=== PATIENT | male | born 1955 | race Caucasian/White ===

== ENCOUNTER 2020-02-18 19:19 | Observation (INO) | payer BC, SELFPAY ==
[2020-02-18 18:16] VITALS: BMI 26.5
[2020-02-18 18:17] VITALS: BP 152/86; PULSE 85; RESP 16; TEMP 36.7; O2SAT 98
--- NOTE | 2020-02-18 18:25 | HP.PCM_ITS ---
History of Present Illness Date of Admission: 02/18/20 Chief Complaint: right flank pain The patient is a 64 year old M with a past medical history significant for kidney stones. He was admitted directly from outside hospital on 02/18/2020 with a complaint of right flank pain. Symptoms had started 3 days prior to this admission was mainly cramping, right-sided and radiating to the groin. Pain was very severe with assisted nausea and vomiting so he went to [facility] ED in [place]. CAT scan done then showed a 7 mm kidney stone. He was hydrated with IV fluids and given IV pain medication he felt well enough to go home. He felt better but symptoms recurred today and pain was very severe at 10 out of 10. Pain was so debilitating he could even get in his car. He denied any fever, chills, burning with urination or frequency, nausea vomiting or diarrhea. Review of signs otherwise negative. Vitals in [place] was stable and CT of the abdomen done there showed bilateral nonobstructing renal calculi with right-sided hydronephrosis and previously identified 7 mm calculi at the ur eteral pelvic junction now within the distal ureter approximately 10 mm from the ureterovesical junction. CBC and BMP done at [place] were unremarkable. There was a stable 9 mm distal left ureteral calculus which is unchanged in position and no evidence of left-sided hydronephrosis. He has been admitted to be managed for bilateral kidney stones with right-sided hydronephrosis. [] Past Medical History Surgical History: no surgical history Psychiatric History: No pertinent psych hx Lives: Spouse/ Significant Other Smoking Status: Never smoker Alcohol: None Drugs: None - *Family History Maternal History Items: No pertinent history Paternal History Items: No pertinent history Review of Systems Constitutional: Denies: Chills, Fever, Weight Change Eyes: Denies: Blurred vision HEENT: Denies: Head Aches, Sinus Congestion, Sinus Drainage Cardiovascular: Denies: Chest Pain, Palpitations Respiratory: Denies: Cough, Shortness of Breath, Shortness of breath at rest, Shortness of breath upon exertion, Sputum production Gastrointestinal: Denies: Abdominal Pain, Nausea, Vomiting Genitourinary: Denies: Dysuria Musculoskeletal: Reports: - - right flank pain. Denies: Joint Pain, Joint Tenderness Skin: Denies: Rash, Wounds Neurological: Denies: Numbness, Tingling, Focal weakness Psychiatric: Denies: Anxiety, Depression, Homicidal Ideations, Suicidal Ideations Hematologic/ Lymphatic: Denies: Easy Bruising, Easy Bleeding VTE Information - Inpt Only VTE Present on Admission: No VTE Pharm Prophylaxis ordered?: Yes - Physical Exam Vitals/I&O's: Vital Signs Temp Pulse Resp BP Pulse Ox 98.1 F 85 16 152/86 H 98 02/18/20 18:17 02/18/20 18:17 02/18/20 18:17 02/18/20 18:17 02/18/20 18:17 Oxygen Delivery Method Room Air Weight: 185 lb Body Mass Index (BMI) 26.5 General: Alert, Oriented x3, Cooperative, No apparent distress HEENT: Atraumatic, PERRLA, EOMI, Normocephalic Oral: Moist Mucosa Neck: Supple, No JVD, Negative Carotid Bruits Lungs: Clear to auscultation, Normal air movement, No rhonchi, No wheeze, No rales Cardiovascular: Regular rate, Regular Rhythm, Normal S1, Normal S2, No murmurs Abdomen: Bowel Sounds Present, Soft, Non Tender, Non-Distended, No Hepato- splenomegaly, - Extremities: No edema, Capillary Refill Less than 3 Seconds, No Calf Tenderness, Cool Skin: No rashes, No breakdown Musculoskeletal: No Tenderness to Palpation of Joints or Extremities, - - no right flank tenderness on palpation Lymphatic: No Cervical, Supraclavicular, or Inguinal Adenopathy Neurological: Cranial nerves II-XII grossly intact, Neuro grossly intact, Motor Exam 5/5 strength throughout Psych/Mental Status: Normal Affect, Appropriate, Alert and oriented to time, place, person, mood and affect Current Medications Sodium Chloride () 10 - 40 ml IV UD PRN PRN Reason: SALINE FLUSH Assessment/Plan 64-year-old male admitted with a complaint of right flank pain. 1. Right sided kidney stone with right hydronephrosis * Admit to [facility]. * Pain is much better now. * CT of the abdomen and pelvis done at [place] showed bilateral nonobstructing calculi with right-sided nephrosis and previously identified 7 mm calculi at the ureteropelvic junction now within the distal ureter, approximately 10 mm from the ureterovesical junction and a stable 9 mm distal left ureteral calculus unchanged in position since previous exam with no evidence of left-sided hydronephrosis. * Hydrate with IV fluids. IV morphine and IV ketorolac PRN. * P.o. tamsulosin. Consult urology. * UA showed no evidence of UTI and CBC and BMP were unremarkable. * 2. DVT prophylaxis: Lovenox CODE STATUS: Full code * Patient counseled extensively about different types of CODE STATUS including full code, DNR CCA and DNR CCA. Patient elects to be full code. * Total ptbz-ad-dvmo time 16 minutes. OBSV E&M: 06480 Initial observation care L2 Procedures: 30038 Advncd Care Plan 30 Min
[2020-02-18 19:50] LABS: Absolute Neutrophil Count 6.7 X10^3/uL (2.0-7.7); Basophil# 0.04 X10^3/uL; Basophil% 0.5 % (0-1); Eosinophil# 0.01 X10^3/uL; Eosinophils% 0.1 % (0-5); Hematocrit 32.5 % (40-54); Hemoglobin 10.4 g/dL (13.0-16.5); Lymphocyte % 11.1 % (19-41); Mean Corpuscular Hgb 28.5 pg (27.0-32.0); Monocyte% 6.2 % (0-10); NRBC Flagged by Analyzer 0 % (0-5); Neutrophil # 6.65 X10^3/uL (2.7-7.7); Neutrophil % 81.7 % (47-70); Platelet Count 223 K/mm3 (150-450); RBC Distribution Width CV 13.5 % (11.6-14.6); RBC Distribution Width SD 44.1 fl (35.1-43.9); Red Blood Count 3.65 M/mm3 (4.6-6.2); White Blood Count 8.1 K/mm3 (4.4-11.0)
[2020-02-18 19:58] LABS: Anion Gap 7 (5-15); BUN 16 mg/dL (7-18); Calcium,Total 9.2 mg/dL (8.5-10.1); Chloride 107 mmol/L (98-107); Creatinine, Serum 1.45 mg/dL (0.70-1.30); EST Glomerular Filtration Rate 52 mL/min (>60); Est Glom Filt Rate - Afr Amer 63 mL/min (>60); Estimated Creatinine Clearance 51.74 ml/min; Glucose 109 mg/dL (74-106); Potassium 4.5 mmol/L (3.5-5.1); Sodium Level 141 mmol/L (136-145)
[2020-02-18] MEDS: Tamsulosin HCl 0.4 MG Capsule PO (21:08)
[2020-02-18] MEDS: 0.9% Normal Saline 1,000 ML 150 ML IV (21:08)
[2020-02-18] MEDS: 0.9% Saline Lock 10 ML Syringe IV (21:09)
[2020-02-18 21:18] VITALS: BP 140/71; PULSE 65; RESP 18; TEMP 36.8; O2SAT 99
[2020-02-19] VITALS (9 sets, daily range): BP systolic 132–149; BP diastolic 68–81; PULSE 55–88; RESP 14–18; TEMP 36.4–37.1; O2SAT 95–100; BMI 26.5
[2020-02-19] MEDS: 0.9% Normal Saline 1,000 ML 150 ML IV ×3 (03:34→18:13)
--- NOTE | 2020-02-19 06:00 | EKG12_ITS ---
Test Reason : PRE-OP Blood Pressure : / mmHG Vent. Rate : 061 BPM Atrial Rate : 061 BPM P-R Int : 146 ms QRS Dur : 134 ms QT Int : 450 ms P-R-T Axes : 020 059 019 degrees QTc Int : 453 ms Normal sinus rhythm Right bundle branch block Abnormal ECG When compared with ECG of 01-AUG-2009 09:39, Left posterior fascicular block is no longer Present Confirmed by RADHA ENGLISH, POOL ([id number]), slot editor OMKAR SANDOVAL ([id number]) on 02/26/2020 9:47:00 AM Referred By: Rommel Callejas Confirmed By:POOL GARCIA MD
[2020-02-19 06:10] LABS: Absolute Lymphocyte Count 0.93 X10^3/uL (0.83-4.51); Absolute Neutrophil Count 3.6 X10^3/uL (2.0-7.7); Basophil# 0.03 X10^3/uL; Basophil% 0.6 % (0-1); Eosinophil# 0.04 X10^3/uL; Eosinophils% 0.8 % (0-5); Hematocrit 30.4 % (40-54); Hemoglobin 9.7 g/dL (13.0-16.5); Lymphocyte # 0.93 X10^3/ul (4.0); Lymphocyte % 17.9 % (19-41); Mean Corp Hgb Conc 31.9 g/dL (32-36); Mean Corpuscular Volume 90.7 fL (80-94); Mean Platelet Vol. 10.3 fl (6.2-12.0); Monocyte# 0.59 X10^3/uL; Monocyte% 11.3 % (0-10); NRBC Flagged by Analyzer 0 % (0-5); Neutrophil % 69.2 % (47-70); Platelet Count 194 K/mm3 (150-450); RBC Distribution Width CV 13.6 % (11.6-14.6); Red Blood Count 3.35 M/mm3 (4.6-6.2); White Blood Count 5.2 K/mm3 (4.4-11.0)
[2020-02-19 06:15] LABS: Anion Gap 6 (5-15); BUN 15 mg/dL (7-18); BUN/Creat Ratio 10.1 RATIO (10-20); Calcium,Total 8.8 mg/dL (8.5-10.1); Chloride 108 mmol/L (98-107); Creatinine, Serum 1.49 mg/dL (0.70-1.30); EST Glomerular Filtration Rate 50 mL/min (>60); Est Glom Filt Rate - Afr Amer 61 mL/min (>60); Estimated Creatinine Clearance 50.35 ml/min; Glucose 100 mg/dL (74-106); Potassium 4.4 mmol/L (3.5-5.1); Sodium Level 140 mmol/L (136-145)
--- NOTE | 2020-02-19 07:15 | CON.PCM_ITS ---
Problem List (1) Right ureteral calculus Status: Acute Reason for Consult Date of Consultation: 02/19/20 Reason for Consultation: Kidney stone obstruction on the right side History of Present Illness: The patient is a 64 year old male transferred in from outside hospital with a 7 mm stone in the mid right ureter with severe renal colic this morning he feels more comfortable he stated he still having pain overnight. Plan for stent placement today Past Medical History Allergies No Known Allergies Allergy (Verified 02/18/20 20:06) Home Medications: Ambulatory Orders Medication Instructions Recorded Omeprazole 20 mg PO DAILY PRN 02/18/20 Surgical History: no surgical history Psychiatric History: No pertinent psych hx Lives: Spouse/ Significant Other Smoking Status: Never smoker Tobacco Use: Non-smoker Alcohol: None Drugs: None - *Family History Maternal History Items: No pertinent history Paternal History Items: No pertinent history Physical Exam - Physical Exam Vital Signs Temp 98.8 F 02/19/20 03:15 Pulse 64 02/19/20 03:15 Resp 18 02/19/20 03:15 BP 143/81 H 02/19/20 03:15 Pulse Ox 97 02/19/20 03:15 Intake & Output 02/17/20 02/18/20 02/19/20 23:59 23:59 23:59 Intake Total 965 / 965 Output Total 250 / 250 Balance 715 / 715 Weight: 83.915 kg Intake: Intake, IV Amount 965 / 965 0.9% Normal Saline 1,000 ML @ 965 / 965 150 mls/hr IV .[id number] [facility] Rx#: [id number] Output: Urine 250 / 250 General: Alert, Oriented x3 HEENT: Atraumatic Oral: Moist Mucosa Neck: Supple Laboratory Tests Past 24 Hrs 02/18/20 02/18/20 02/19/20 19:32 19:32 05:50 WBC 8.1 5.2 RBC 3.65 L 3.35 L Hgb 10.4 L 9.7 L Hct 32.5 L 30.4 L MCV 89.0 90.7 MCH 28.5 29.0 MCHC 32.0 31.9 L RDW Std Deviation 44.1 H 45.0 H RDW Coeff of Ricki 13.5 13.6 Plt Count 223 194 MPV 10.0 10.3 Immature Gran % (Auto) 0.400 0.200 Neut % (Auto) 81.7 H 69.2 Lymph % (Auto) 11.1 L 17.9 L [place] % (Auto) 6.2 11.3 H Eos % (Auto) 0.1 0.8 Baso % (Auto) 0.5 0.6 Absolute Neuts (auto) 6.7 3.6 Absolute Lymphs (auto) 0.90 0.93 Nucleated RBC % 0 0 Sodium 141 Potassium 4.5 Chloride 107 Carbon Dioxide 27.0 Anion Gap 7 BUN 16 Creatinine 1.45 H Estim Creat Clear Calc 51.74 Est GFR (MDRD) Af Amer 63 Est GFR (MDRD) Non-Af 52 L BUN/Creatinine Ratio 11.0 Glucose 109 H Calcium 9.2 02/19/20 05:50 WBC RBC Hgb Hct MCV MCH MCHC RDW Std Deviation RDW Coeff of Ricki Plt Count MPV Immature Gran % (Auto) Neut % (Auto) Lymph % (Auto) [place] % (Auto) Eos % (Auto) Baso % (Auto) Absolute Neuts (auto) Absolute Lymphs (auto) Nucleated RBC % Sodium 140 Potassium 4.4 Chloride 108 H Carbon Dioxide 26.0 Anion Gap 6 BUN 15 Creatinine 1.49 H Estim Creat Clear Calc 50.35 Est GFR (MDRD) Af Amer 61 Est GFR (MDRD) Non-Af 50 L BUN/Creatinine Ratio 10.1 Glucose 100 Calcium 8.8 Assessment/Plan All Active Problems Right ureteral calculus (Acute) Plan to proceed with cystoscopy and right stent placement for obstructing stone and severe renal colic.
[2020-02-19] MEDS: Acetaminophen 325 MG Tablet 650 MG PO ×2 (07:17→15:13)
[2020-02-19] MEDS: Sodium Chloride 0.65% 1 SPRAY SPRAY.BTL 2 SPRAY NASAL (09:55)
[2020-02-19 10:14] LABS: Bacteria 0 SEEN /hpf (None Seen); Mucous, Urine 0 SEEN /hpf (<or=2+); Squamous Epithelial Cells - UA 0 SEEN /hpf (0-5); White Blood Cells 0 SEEN /hpf (0-5)
[2020-02-19 10:18] LABS: Color, Urine Yellow (Yellow); Glucose, Dipstick Normal (Normal); Ketone-Dipstick 15 mg/dl (Negative); Leukocyte Esterase-Dipstick Negative /ul (Negative); Nitrite-Dipstick Negative (Negative); Occult Blood-Urine 250 /ul (Negative); Protein-Dipstick Negative (Negative); Urine Bilirubin Dipstick Negative (Negative); Urine Clarity Clear (Clear); Urine Urobilinogen Normal (Normal)
[2020-02-19 10:35] LABS: Red Blood Cells-Urine 25-50 SEEN /hpf (0-5)
--- NOTE | 2020-02-19 11:27 | NURSING ---
pt left unit with staff at 1100 for OR.
[2020-02-19] MEDS: Lidocaine Jelly 2% 20 ML Syringe (URO-JET) 20 APPLIC (12:18)
--- NOTE | 2020-02-19 12:18 | DCINST_ITS ---
Discharge Diet: Light diet - advance as tolerated Discharge Activity: Return to Normal Activity Allergies/Adverse Reactions: Allergies No Known Allergies Allergy (Verified 02/18/20 20:06) Medications to take at Discharge Omeprazole 20 mg PO DAILY PRN 02/18/20 Primary Care Physician: Will Ely MD [Primary Care Provider] - Test Results: Test results from this visit will be discussed in further detail at your follow- up appointment, if applicable. Please Follow Up With: Rommel Callejas MD - [phone] When: call for appt next tuesday with Xray
--- NOTE | 2020-02-19 12:34 | OP.PCM_ITS ---
Problem List (1) Right ureteral calculus Status: Acute Report of Operation Date of Procedure: 02/19/20 Pre-Operative Diagnosis: Right ureteral calculi Post-Operative Diagnosis: Bilateral obstructing ureteral calculi Surgery/Procedure Performed:: Cystoscopy and right stent placement, left retrograde pyelogram interpretation fluoroscopically images and left stent placement Description of Surgical Findings:: 64-year-old male presents the hospital with severe renal colic CAT scan was done outside hospital I do not have the films I have the report and the report said that there was a stone in the distal right ureter that had moved down but also they reported a stone in the distal left ureter so today we taken back to surgery for stent placement. It went to the right side and clearly under fluoroscopy could see a stone in the distal right ureter advanced a wire past the stone and over the wire place a stent 6 [place] by 26 cm stent had some purulent urine coming from the right kidney and then left the stent in place. Then looked under fluoroscopy and there was a fragment that appeared to possibly bleed in the distal left ureter so I cannulated the left ureter was with a [place] wire and a Pollack catheter I performed a retrograde pyelogram see contrast, down the ureter and sure enough the contrast is getting hung up behind the stone in the distal left ureter so I advanced a wire up on the left side and over the wire place a stent. Stents are in place and bilateral for stone in both distal ureters patient's anesthetic was reversed I will see him next Tuesday in the office with an x-ray and will plan for treatment of the stones. Type of Anesthesia:: General Drains: stent bilateral - Admit VTE Documentation VTE Present on Admission: No VTE Mechan Device Prophylaxis: SCD's
--- NOTE | 2020-02-19 13:22 | NURSING ---
report called by Corie in PACU- pt returning to unit at this time.
--- NOTE | 2020-02-19 13:27 | PCA ---
pt off floor
--- NOTE | 2020-02-19 14:03 | PCM.PN.HOSP ---
Patient Problems: Active and Suspected Problems Right ureteral calculus (Acute) Objective: Seen and examined in the morning Patient was admitted with fever, renal colic pain mainly in the right. Has history of kidney stone and passed spontaneously about 3 times in the past. No fever or chills. General: Alert, Oriented x3, Cooperative HEENT: Atraumatic, PERRLA, EOMI, Normocephalic Oral: No Gingival or Mucosal Lesions/ Ulcerations Neck: Supple, No JVD, Negative Carotid Bruits Lungs: Air entry equal in bilateral lung. No crepitation/rhonchi Cardiovascular: Regular rate, Regular Rhythm, Normal S1, Normal S2, No murmurs Abdomen: Bowel Sounds Present, Soft, Non-Distended : Tenderness over right lumbar area. No renal angle tenderness or fullness. No suprapubic tenderness. Extremities: No edema, Capillary Refill Less than 3 Seconds Skin: No rashes, No breakdown Musculoskeletal: No Tenderness to Palpation of Joints or Extremities Neurological: Cranial nerves II-XII grossly intact, Deep Tendon Reflexes 2+/4 and Symmetrical, Neuro grossly intact Psych/Mental Status: Normal Affect, Appropriate Vitals/I&O's: Vital Signs Temp Pulse Resp BP Pulse Ox 97.5 F L 55 L 16 149/68 H 100 02/19/20 13:44 02/19/20 13:44 02/19/20 13:44 02/19/20 13:44 02/19/20 13:44 Oxygen Delivery Method Room Air Weight: 185 lb 0.014 oz Body Mass Index (BMI) 26.5 Intake and Output for Last 24 Hours 02/17/20 02/18/20 02/19/20 23:59 23:59 23:59 Intake Total 1967.5 / 1967.5 Output Total 250 / 250 Balance 1717.5 / 1717.5 Laboratory Results 02/18/20 19:32: WBC 8.1, RBC 3.65 L, Hgb 10.4 L, Hct 32.5 L, MCV 89.0, MCH 28.5, MCHC 32.0, RDW Std Deviation 44.1 H, RDW Coeff of Ricki 13.5, Plt Count 223, MPV 10.0, Immature Gran % (Auto) 0.400, Neut % (Auto) 81.7 H, Lymph % (Auto) 11.1 L, [place] % (Auto) 6.2, Eos % (Auto) 0.1, Baso % (Auto) 0.5, Absolute Neuts (auto) 6.7, Absolute Lymphs (auto) 0.90, Nucleated RBC % 0 02/18/20 19:32: Sodium 141, Potassium 4.5, Chloride 107, Carbon Dioxide 27.0, Anion Gap 7, BUN 16, Creatinine 1.45 H, Estim Creat Clear Calc 51.74, Est GFR (MDRD) Af Amer 63, Est GFR (MDRD) Non-Af 52 L, BUN/Creatinine Ratio 11.0, Glucose 109 H, Calcium 9.2 02/19/20 05:50: WBC 5.2, RBC 3.35 L, Hgb 9.7 L, Hct 30.4 L, MCV 90.7, MCH 29.0, MCHC 31.9 L, RDW Std Deviation 45.0 H, RDW Coeff of Ricki 13.6, Plt Count 194, MPV 10.3, Immature Gran % (Auto) 0.200, Neut % (Auto) 69.2, Lymph % (Auto) 17.9 L, [place] % (Auto) 11.3 H, Eos % (Auto) 0.8, Baso % (Auto) 0.6, Absolute Neuts (auto) 3.6, Absolute Lymphs (auto) 0.93, Nucleated RBC % 0 02/19/20 05:50: Sodium 140, Potassium 4.4, Chloride 108 H, Carbon Dioxide 26.0, Anion Gap 6, BUN 15, Creatinine 1.49 H, Estim Creat Clear Calc 50.35, Est GFR (MDRD) Af Amer 61, Est GFR (MDRD) Non-Af 50 L, BUN/Creatinine Ratio 10.1, Glucose 100, Calcium 8.8 02/19/20 07:55: COVID-19 (MATHIEU) Not Detected 02/19/20 10:00: Urine Color Yellow, Urine Clarity Clear, Urine pH 6.0, Ur Specific [place] 1.010, Urine Protein Negative, Urine Glucose (UA) Normal, Urine Ketones 15 H, Urine Occult Blood 250 H, Urine Nitrite Negative, Urine Bilirubin Negative, Urine Urobilinogen Normal, Ur Leukocyte Esterase Negative, Urine RBC 25-50 SEEN, Urine WBC 0 SEEN, Ur Squamous Epith Cells 0 SEEN, Urine Bacteria 0 SEEN, Urine Mucus 0 SEEN Current Medications Acetaminophen (Tylenol) 650 mg PO Q6H PRN PRN PRN Reason: Pain Score 1-10/Temp > 100.7 F Last Admin: 02/19/20 07:17 Dose: 650 mg Documented by: Dextrose (D50w Syringe) 0 gm IV X1 PRN; Protocol PRN Reason: Hypoglycemia Enoxaparin Sodium (Lovenox) 40 mg SC DAILY [facility] Last Admin: 02/19/20 07:20 Dose: Not Given Documented by: Glucagon () 1 mg IM .X1 PRN PRN Reason: Hypoglycemia Ceftriaxone Sodium 2 gm/ (Sodium Chloride) 50 mls @ 100 mls/hr IV Q24 [facility] Last Infusion: 02/19/20 10:33 Dose: Infused Documented by: Morphine Sulfate () 2 mg IV Q3H PRN PRN PRN Reason: Pain Score 6-10/10 Ondansetron HCl (Zofran) 4 mg IV Q8H PRN PRN PRN Reason: NAUSEA/VOMITING Oxycodone HCl (Oxyir) 5 mg PO Q4H PRN PRN PRN Reason: Pain Score 4-5/10 Sodium Chloride () 10 - 40 ml IV UD PRN PRN Reason: SALINE FLUSH Last Admin: 02/18/20 21:09 Dose: 10 ml Documented by: Sodium Chloride ([place] Nasal [place]) 2 spray NASAL TID PRN PRN PRN Reason: NASAL DRYNESS Last Admin: 02/19/20 09:55 Dose: 2 spray Documented by: Tamsulosin HCl (Flomax) 0.4 mg PO DAILY@1730 [facility] Last Admin: 02/18/20 21:08 Dose: 0.4 mg Documented by: STROKE Vital Signs/Narrative: Vital Signs Temp Pulse Resp BP Pulse Ox 02/19/20 13:44 97.5 F L 55 L 16 149/68 H 100 02/19/20 12:56 97.9 F 64 16 149/79 H 96 02/19/20 12:55 58 L 14 143/80 H 95 02/19/20 12:50 58 L 14 146/74 H 95 02/19/20 12:46 98.6 F 88 14 132/73 H 95 02/19/20 10:27 98.4 F 59 L 16 149/76 H 95 Medical Necessity - Tobacco Use Smoking Status: Never smoker Tobacco Use: Non-smoker Assessment/Plan All Active Problems Right ureteral calculus (Acute) This is a is a 64-year-old gentleman was admitted with right flank pain consistent with right renal colic secondary to bilateral ureteric stone was admitted from [facility]. 1. Bilateral ureteric stone with right-sided hydronephrosis: Patient is being admitted to [facility] floor 3. CT scan done there showed bilateral nonobstructing calculi with right-sided hydronephrosis, 7 mm calculi at right distal ureter about 10 mm from UV junction and stable 9 mm distal left ureteral calculus with no evidence of left-sided hydronephrosis. Patient started on IV antibiotic ceftriaxone. Patient was taken to the OR and had bilateral ureteric stents done. There is some purulent urine found coming from right kidney. UA shows 25-50 cells RBC but no WBC. Urine culture pending. COVID-19 nondetected done as preop criteria. Continue Flomax. On pain medication. 2. [facility]: 55498 Subs Hosp L2
--- NOTE | 2020-02-19 14:09 | NURSING ---
Dr. Joseph called to unit and asked how patient was doing and if he could be d/c'ed today. Patient reports that it is causing significant pain with urination and that he is not sure if he can be or not. Requests for doctor to wait one hour and see how he feels at that time.
[2020-02-19] MEDS: Ondansetron 4 MG/2 ML Vial IV (15:13)
[2020-02-19] MEDS: oxyCODONE 5 MG Tablet PO ×2 (15:13→20:35)
[2020-02-19] MEDS: Tamsulosin HCl 0.4 MG Capsule PO (18:13)
[2020-02-20 02:00] VITALS: BP 159/84; PULSE 68; RESP 16; TEMP 36.8; O2SAT 98
[2020-02-20] MEDS: 0.9% Normal Saline 1,000 ML 75 ML IV (07:01)
[2020-02-20] MEDS: oxyCODONE 5 MG Tablet PO (07:04)
[2020-02-20 07:24] VITALS: BP 165/86; PULSE 64; RESP 16; TEMP 36.9; O2SAT 96
--- NOTE | 2020-02-20 09:16 | DCINST_ITS ---
- Discharge Diagnoses Current Active Problems: Current Active and Chronic Problems Right ureteral calculus (Acute) You will use the following diet at home:: No restrictions Discharge Activity: Return to Normal Activity Call your doctor if you observe: Fever of 101 or Higher Allergies/Adverse Reactions: Allergies No Known Allergies Allergy (Verified 02/18/20 20:06) Medications to take at Discharge Omeprazole 20 mg PO DAILY PRN 02/18/20 Acetaminophen [Tylenol Tablet] 650 mg PO Q6H PRN PRN tablet 02/20/20 Ciprofloxacin [Cipro] 500 mg PO BID #12 tab 02/20/20 Oxycodone [Oxyir] 5 mg PO Q6H PRN 2 Days #8 tablet 02/20/20 The following prescriptions were given: Ciprofloxacin [Cipro] 500 mg PO BID #12 tab Transmission Status: Pending to [id number] Oxycodone [Oxyir] 5 mg PO Q6H PRN 2 Days #8 tablet PRN Reason: Pain Score 4-5/10 Transmission Status: Sent to [facility] Primary Care Physician: Will Ely MD [Primary Care Provider] - Within 2 Weeks Test Results: Test results from this visit will be discussed in further detail at your follow- up appointment, if applicable. Please Follow Up With: Rommel Callejas MD - [phone] When: call for appt next tuesday with Xray Proposed Discharge Date: 02/20/20
--- NOTE | 2020-02-20 09:18 | DS.PCM_ITS ---
Discharge Date and Diagnosis - Problem List Patient Problems: Active and Suspected Problems Right ureteral calculus (Acute) Date of Admission: 02/18/20 Date of Discharge: 02/20/20 - Primary Discharge Diagnosis Acute Problems: Active Problems Right ureteral calculus (Acute) Hospital Course and Treatment gómez Callejas Operations: - - Cystoscopy and right stent placement, left retrograde pyelogram interpretation fluoroscopically images and left stent placement Procedures: None Summary of Care Provided: The patient is a 64 year old M presents with right flank pain. Patient was seen at outside hospital and had a CAT scan that showed a 7 mm kidney stone. Patient was started on IV fluids as well as IV pain medication and sent home but when he returned with pain. Patient was also noted to have right-sided hydronephrosis. Patient was brought over to [facility] and was seen by urolog y. On February 18, he underwent cystoscopy and right stent placement with left retrograde pyelogram and left stent placement. There was some purulence noted with the right stent placement. Afterwards, patient is feeling better but still states he has some abdominal pain when he initially stands up and then a little bit of dysuria but goes away the longer he is able to urinate. His urinalysis was unremarkable for urinary tract infection, but given the purulence, will elect to treat patient with antibiotics. And will treat him for 6 more days of ciprofloxacin. Patient will follow-up with Dr. Júnior casanova as outpatient. [] Patient Problems: Active and Suspected Problems Right ureteral calculus (Acute) - Physical Exam Vitals/I&O's: Vital Signs Temp Pulse Resp BP Pulse Ox 36.9 C 64 16 165/86 H 96 02/20/20 07:24 02/20/20 07:24 02/20/20 07:24 02/20/20 07:24 02/20/20 07:24 Oxygen Delivery Method Room Air Weight: 83.915 kg Body Mass Index (BMI) 26.5 Intake and Output for Last 24 Hours 02/18/20 02/19/20 02/20/20 23:59 23:59 23:59 Intake Total 3720.0 / 3970.0 600 / 600 Output Total 500 / 800 1300 / 1300 Balance 3220.0 / 3170.0 -700 / -700 General: Alert, No apparent distress HEENT: Atraumatic Oral: Moist Mucosa, No Gingival or Mucosal Lesions/ Ulcerations Neck: No Nodes, Trachea Midline Lungs: Clear to auscultation, Normal air movement, No rhonchi, No wheeze, No rales Cardiovascular: Regular rate, Regular Rhythm, Normal S1, Normal S2, No murmurs Abdomen: Bowel Sounds Present, Soft, Non Tender, Non-Distended, No Hepato- splenomegaly Extremities: No edema, No Calf Tenderness Laboratory Results 02/19/20 07:55: COVID-19 (MATHIEU) Not Detected 02/19/20 10:00: Urine Color Yellow, Urine Clarity Clear, Urine pH 6.0, Ur Specific Lead 1.010, Urine Protein Negative, Urine Glucose (UA) Normal, Urine Ketones 15 H, Urine Occult Blood 250 H, Urine Nitrite Negative, Urine Bilirubin Negative, Urine Urobilinogen Normal, Ur Leukocyte Esterase Negative, Urine RBC 25-50 SEEN, Urine WBC 0 SEEN, Ur Squamous Epith Cells 0 SEEN, Urine Bacteria 0 SEEN, Urine Mucus 0 SEEN Current Medications Acetaminophen (Tylenol) 650 mg PO Q6H PRN PRN PRN Reason: Pain Score 1-10/Temp > 100.7 F Last Admin: 02/19/20 15:13 Dose: 650 mg Documented by: Dextrose (D50w Syringe) 0 gm IV X1 PRN; Protocol PRN Reason: Hypoglycemia Enoxaparin Sodium (Lovenox) 40 mg SC DAILY [facility] Last Admin: 02/19/20 07:20 Dose: Not Given Documented by: Glucagon () 1 mg IM .X1 PRN PRN Reason: Hypoglycemia Ceftriaxone Sodium 2 gm/ (Sodium Chloride) 50 mls @ 100 mls/hr IV Q24 [facility] Last Infusion: 02/19/20 10:33 Dose: Infused Documented by: Sodium Chloride () 1,000 mls @ 75 mls/hr IV .[id number] [facility] Last Admin: 02/20/20 07:01 Dose: 75 mls/hr Documented by: Morphine Sulfate () 2 mg IV Q3H PRN PRN PRN Reason: Pain Score 6-10/10 Ondansetron HCl (Zofran) 4 mg IV Q8H PRN PRN PRN Reason: NAUSEA/VOMITING Last Admin: 02/19/20 15:13 Dose: 4 mg Documented by: Oxycodone HCl (Oxyir) 5 mg PO Q4H PRN PRN PRN Reason: Pain Score 4-5/10 Last Admin: 02/20/20 07:04 Dose: 5 mg Documented by: Sodium Chloride () 10 - 40 ml IV UD PRN PRN Reason: SALINE FLUSH Last Admin: 02/18/20 21:09 Dose: 10 ml Documented by: Sodium Chloride ([place] Nasal [place]) 2 spray NASAL TID PRN PRN PRN Reason: NASAL DRYNESS Last Admin: 02/19/20 09:55 Dose: 2 spray Documented by: Tamsulosin HCl (Flomax) 0.4 mg PO DAILY@1730 [facility] Last Admin: 02/19/20 18:13 Dose: 0.4 mg Documented by: Discharge Diet: Light diet - advance as tolerated Discharge Activity: Return to Normal Activity Call your doctor if you observe: Fever of 101 or Higher Home Medications: Medications to take at Discharge Omeprazole 20 mg PO DAILY PRN 02/18/20 Acetaminophen [Tylenol Tablet] 650 mg PO Q6H PRN PRN tablet 02/20/20 Ciprofloxacin [Cipro] 500 mg PO BID #12 tab 02/20/20 Oxycodone [Oxyir] 5 mg PO Q6H PRN 2 Days #8 tablet 02/20/20 Following Prescrptions Were Given to Patient: Ciprofloxacin [Cipro] 500 mg PO BID #12 tab [facility] Oxycodone [Oxyir] 5 mg PO Q6H PRN 2 Days #8 tablet PRN Reason: Pain Score 4-5/10 [facility] Status[facility] Primary Care Physician: Will Ely MD [Primary Care Provider] - Within 2 Weeks Please Follow Up With: Rommel Callejas MD - [phone] When: call for appt next tuesday with Xray Disposition: Home Minutes spent on discharge:: 32 Patient Condition:: Good Medical Necessity - Tobacco Use Smoking Status: Never smoker Tobacco Use: Non-smoker Meaningful Use Info Meaningful Use Diagnoses (Choose all that apply): None applicable Inpatient E&M: 92169 Disch Hosp
== END 2020-02-20 10:18 | disposition home or self-care (01) ==
PROVIDERS: Internal Medicine; Urology; Admitting Provider Student in an Organized Health Care Education/Training Program; PCP Family Medicine
PROC: (CPT 52332; principal; 2020-02-19 11:50)
DX: N13.2 Hydronephrosis with renal and ureteral calculous obstruction (principal); K21.9 Gastro-esophageal reflux disease without esophagitis; Z79.899 Other long term (current) drug therapy; R03.0 Elevated blood-pressure reading, without diagnosis of hypertension
CPT/HCPCS: 00910; 52332; 36415; 76000; 80048; 81001; 85025; 87086; 87635; 93005; 96361; 96365; 96375; 99218; G2023; J7030; A4216; C1769; C2617; G0378; G0379; J0696; J2405; U0003

== ENCOUNTER → 2020-02-25 07:56 | Outpatient (CLI) | payer BC, SELFPAY ==
[2020-02-19 10:27] VITALS: BMI 26.5
--- NOTE | 2020-02-25 08:30 | RAD_ITS ---
STUDY: X-RAY - ABDOMEN/PELVIS REASON FOR EXAM: Male, 64 years old. HX OF KIDNEY STONES BOTH SIDES. RECENT STENT PLACEMENT BOTH SIDES. TECHNIQUE: Single AP view of the abdomen / pelvis. COMPARISON: None. FINDINGS: There is an abundance of fecal material throughout the colon. Bilateral double-J stent catheters are seen. Findings suggestive of a 3.7 mm calculus in the distal portion of the right ureter. Findings suggestive of a 5.2 mm calculus in the distal portion of the left ureter. Normal soft tissue structures. Normal visualized osseous structures. RAD/Abdomen Single View IMPRESSION: Bilateral double-J stent catheter placement. Findings suggestive of a 3.7 mm and 5.2 mm calculus in the distal portion of the right and left ureters respectively. Electronically Signed: Jagjit Hess, at 8:59 EDT , Service support ,
== END ==
PROVIDERS: PCP Family Medicine; Referring Provider Urology; Visit Provider Urology
DX: N20.0 Calculus of kidney (principal)
CPT/HCPCS: 74018

== ENCOUNTER 2020-02-29 08:50 | Day surgery (SDC) | payer BC, SELFPAY ==
[2020-02-19 10:27] VITALS: BMI 26.5
[2020-02-29 09:09] VITALS: BP 159/67; PULSE 67; RESP 16; TEMP 36.8; O2SAT 100; BMI 24.8
[2020-02-29] MEDS: Lactated Ringers 1,000 ML 100 ML IV (09:18)
[2020-02-29] MEDS: Cefazolin 2 GM in 0.9% Normal Saline 100 ML IV (11:13)
--- NOTE | 2020-02-29 11:30 | CALC_PTH ---
PATIENT: CHE DAVEY LOC: [facility] [place][id number] AGE/SX: 64/M ROOM: RE02/29/[address]: Dr. Rommel Callejas MD : 1955 BED: DIS: 02/29/2020 SPEC #: [id number] RECD: 02/29/20 13:40 STATUS: CONNOR BRIAN #: [id number] NELL: 02/29/20 11:[address]: Rommel Callejas DEPT: SURGICAL PATHOLOGY RECD BY: Fabrizio Mcadams ENTERED: 03/03/20 09:17 SP TYPE: Calculi OTHR DR: Dr. Will Ely MD Tissues: CALCULI Procedures: Surgery Specimen Level I HEADER OPERATION: Cystoscopy, bilateral ureteroscopy, bilateral retrograde PRE-OP DIAGNOSIS: Calculus, bilateral ureters TISSUE SUBMITTED: Left and right ureteral calculi for analysis GROSS DIAGNOSIS Fragments of stone, clinically left and right ureteral calculi, submitted for analysis. SJ:celia 03/03/20 COMMENT The calculus is submitted in its entirety for chemical stone analysis. The results from this study will be reported separately. GROSS DESCRIPTION Received is one container labeled with the patient's name and designated calculus left and right ureter. The specimen consists of three fragments of brownish-black stone that in aggregate measure 0.5 x 0.3 x 0.2 cm. The entire specimen is submitted for stone analysis. / AIDAN:celia 03/03/20 CPT: 77653
--- NOTE | 2020-02-29 12:00 | PCM.HP.STD ---
History of Present Illness Date of Admission: 02/29/20 Chief Complaint: Bilateral ureteral calculi status post stents The patient is a 64 year old male presented to the hospital with bilateral ureteral calculi he went in with bilateral stent placement today working to go after both the stones on the left and right side. Past Medical History Allergies No Known Allergies Allergy (Verified 02/29/20 09:03) Home Medications: Ambulatory Orders Medication Instructions Recorded Omeprazole 20 mg PO DAILY PRN 02/18/20 Acetaminophen [Tylenol Tablet] 650 mg PO Q6H PRN PRN tab 02/20/20 Tamsulosin HCl [Flomax] 0.4 mg PO DAILY 02/27/20 Surgical History: no surgical history Psychiatric History: No pertinent psych hx Smoking Status: Never smoker Tobacco Use: Non-smoker - *Family History Maternal History Items: No pertinent history Paternal History Items: No pertinent history Review of Systems Constitutional: Denies: Chills, Fever, Weight Change HEENT: Denies: Head Aches, Sinus Congestion, Sinus Drainage Cardiovascular: Denies: Chest Pain, Palpitations Respiratory: Denies: Cough, Shortness of breath at rest, Sputum production Gastrointestinal: Denies: Abdominal Pain, Nausea, Vomiting Genitourinary: Denies: Dysuria Musculoskeletal: Denies: Joint Pain, Joint Tenderness Skin: Denies: Rash, Wounds Neurological: Denies: Numbness, Tingling, Focal weakness Psychiatric: Denies: Anxiety, Depression, Homicidal Ideations, Suicidal Ideations Hematologic/ Lymphatic: Denies: Easy Bruising, Easy Bleeding VTE Information - Inpt Only VTE Present on Admission: No VTE Mechan Device Prophylaxis: SCD's - Physical Exam Vitals/I&O's: Vital Signs Temp Pulse Resp BP Pulse Ox 98.2 F 67 16 159/67 H 100 02/29/20 09:09 02/29/20 09:09 02/29/20 09:09 02/29/20 09:09 02/29/20 09:09 Oxygen Delivery Method Room Air Weight: 78.5 kg Body Mass Index (BMI) 24.8 Intake and Output for Last 24 Hours 02/27/20 02/28/20 02/29/20 23:59 23:59 23:59 Intake Total 110 / 110 Balance 110 / 110 General: Alert, Oriented x3, Cooperative HEENT: Atraumatic, PERRLA, EOMI, Normocephalic Neck: Supple, No JVD, Negative Carotid Bruits Lungs: Clear to auscultation, Normal air movement Cardiovascular: Regular rate, No murmurs Abdomen: Bowel Sounds Present, Soft, Non Tender Extremities: No edema, Capillary Refill Less than 3 Seconds Skin: No rashes, No breakdown Musculoskeletal: No Tenderness to Palpation of Joints or Extremities Neurological: Cranial nerves II-XII grossly intact Psych/Mental Status: Normal Affect, Appropriate Laboratory Results 02/28/20 09:20: COVID-19 (MATHIEU) Not Detected Current Medications Cefazolin Sodium 2 gm/ Sodium (Chloride) 110 mls @ 150 mls/hr IV PREOP ONE Stop: 02/29/20 12:13 Last Infusion: 02/29/20 11:25 Dose: Infused Documented by: Lactated Ringer's () 1,000 mls @ 100 mls/hr IV .Q10H SATURNINO Last Admin: 02/29/20 09:18 Dose: 100 mls/hr Documented by: Assessment/Plan All Active Problems Right ureteral calculus (Acute) Plan to proceed with bilateral ureteroscopy laser lithotripsy of stones and stent
[2020-02-29] MEDS: Ketorolac 15 MG/ML Vial IV (12:03)
--- NOTE | 2020-02-29 12:04 | DCINST_ITS ---
Discharge Diet: No Restrictions, Light diet - advance as tolerated Discharge Activity: Return to Normal Activity, May Not Drive - for 2 days. Additional Activity Instructions:: Please be aware that pain medications may cause nausea. You should typically eat light foods as you take your pain medication. Pain medication may cause constipation, if this is a problem for you, please discuss with your doctor. Allergies/Adverse Reactions: Allergies No Known Allergies Allergy (Verified 02/29/20 09:03) Medications to take at Discharge RX: Omeprazole 20 mg PO DAILY PRN 02/18/20 RX: Acetaminophen [Tylenol Tablet] 650 mg PO Q6H PRN PRN tab 02/20/20 Tamsulosin HCl [Flomax] 0.4 mg PO DAILY 02/27/20 Ciprofloxacin [Cipro] 500 mg PO BID #6 tab 02/29/20 Hydrocodone/Acetaminophen [[place] 5-325 Tablet] 1 each PO Q4H PRN PRN 5 Days #14 tablet 02/29/20 The following prescriptions were given: Ciprofloxacin [Cipro] 500 mg PO BID #6 tab Transmission Status: Pending to [facility] Hydrocodone/Acetaminophen [[place] 5-325 Tablet] 1 each PO Q4H PRN PRN 5 Days #14 tablet PRN Reason: Pain Score 1-1010 Transmission Status: Sent to [facility] Primary Care Physician: Will Ely MD [Primary Care Provider] - Test Results: Test results from this visit will be discussed in further detail at your follow- up appointment, if applicable. Please Follow Up With: Rommel Callejas MD When: please call to make an appointment.
--- NOTE | 2020-02-29 12:05 | PCM.OPRPT ---
Report of Operation Date of Procedure: 02/29/20 Pre-Operative Diagnosis: Right ureteral calculi status post stent. Left ureteral calculi status post stent Post-Operative Diagnosis: Same Surgery/Procedure Performed:: Left ureteroscopy laser lithotripsy of stone, no stent. Basket extraction of stones. Right ureteroscopy laser lithotripsy of stone and stent placement. Basket extraction of stone. Description of Surgical Findings:: 64-year-old male presented to the hospital for bilateral ureteral calculi in the distal ureters causing obstruction and pain he underwent cystoscopy and stent placement at the time. Now presents for ureteroscopy and laser lithotripsy of both the stones are both in the distal ureter on the left side and the right side. Patient was taken back to the operating room after smooth induction of general anesthesia he was placed in dorsolithotomy position. Penis and testicles were prepped and draped in usual sterile fashion. Went into the bladder with a 21 [place] rigid cystourethroscope the entire length the urethra is normal the prostate was normal once again the bladder identified the left ureteral orifice and the stent coming from the left side grabbed the stent with a grasper pulled out the meatus advance a wire through the stent and the left the wire in place over the wire went in with the SlimLine ureteroscope was able to get into the ureter quite easily encountered the stone in the distal ureter about 6 mm in size and the stone was lasered a little tiny pieces using laser lithotripsy. I then extracted the fragments out of the distal left ureter no major fragments were left in the ureter and the ureter was fairly open. I then went to the right side and with the cystoscope I grabbed the stent from the right side pulled out the meatus and put a wire through the stent up on the right side and the next to the wire went in with a SlimLine ureteroscope was able to get into the ureter quite easily encountered a larger stone about 7 mm in size laser the stone little tiny pieces of the laser fiber and then after lasering the stone I used the basket extract the fragments from the right side the right side was much more inflamed and swollen so I decided to leave a stent on the right side put a wire up on the right side and over the wire place a stent but the string on the stent but cut it short to prevent extraction and I will see him next week for cystoscopy and stent removal on the right side. Patient tolerated procedures on both sides quite well we will see him next week to remove the stent that was left in the right side Type of Anesthesia:: General Drains: debbie stent - Admit VTE Documentation VTE Present on Admission: No VTE Mechan Device Prophylaxis: SCD's
[2020-02-29 12:10] VITALS: BP 159/67; BP 163/74; PULSE 55; RESP 16; TEMP 36.2; O2SAT 98
[2020-02-29 12:20] VITALS: BP 159/67; BP 159/71; PULSE 50; RESP 16
[2020-02-29 12:32] VITALS: BP 151/75; BP 159/67; PULSE 57; RESP 16; O2SAT 98
[2020-02-29 12:40] VITALS: BP 132/75; BP 159/67; PULSE 53; RESP 16; TEMP 36.2; O2SAT 100
[2020-02-29 13:17] VITALS: BP 159/67
[2020-03-18 05:04] LABS: Source NOT PROVIDED
[2020-03-18 05:05] LABS: Ca Oxalate, Monohydrate 100
== END 2020-02-29 13:20 | disposition home or self-care (01) ==
LOC: SDC 08:51 → AC 08:53
PROVIDERS: Anesthesiology; PCP Family Medicine; Referring Provider Urology; Visit Provider Urology
PROC: 0TJ98ZZ Inspection of Ureter, Via Natural or Artificial Opening Endoscopic (ICD-10-PCS; CPT 52352; principal; 2020-02-29 11:20)
DX: N20.1 Calculus of ureter (principal); K21.9 Gastro-esophageal reflux disease without esophagitis; R03.0 Elevated blood-pressure reading, without diagnosis of hypertension; Z11.59 Encounter for screening for other viral diseases; Z87.442 Personal history of urinary calculi
CPT/HCPCS: 52356; 76000; 82360; 87635; 88300; G2023; J7120; C1769; C2617; J2405; U0003

== ENCOUNTER → 2022-06-30 | Outpatient (CLI) | payer MEDICARE, SELFPAY ==
--- NOTE | 2022-06-30 11:52 | EKG12_ITS ---
Test Reason : PRE OP Blood Pressure : / mmHG Vent. Rate : 063 BPM Atrial Rate : 063 BPM P-R Int : 178 ms QRS Dur : 136 ms QT Int : 434 ms P-R-T Axes : 056 089 058 degrees QTc Int : 444 ms Normal sinus rhythm Right bundle branch block Abnormal ECG Confirmed by RANDELL ENGLISH, FABIANA ([id number]), material expeditor OMKAR SANDOVAL ([id number]) on 07/01/2022 12:44:33 PM Referred By: Jesus Greco Confirmed By:FABIANA MEJIAS MD
[2022-06-30 12:28] LABS: Hematocrit 38.1 % (40-54); Hemoglobin 13.3 g/dL (13.0-16.5); Mean Corp Hgb Conc 34.9 g/dL (32-36); Mean Corpuscular Hgb 32.9 pg (27.0-32.0); Mean Corpuscular Volume 94.3 fL (80-94); Mean Platelet Vol. 10.4 fl (6.2-12.0); Platelet Count 264 K/mm3 (150-450); RBC Distribution Width CV 12.2 % (11.6-14.6); RBC Distribution Width SD 42.8 fl (35.1-43.9); Red Blood Count 4.04 M/mm3 (4.6-6.2); White Blood Count 7.1 K/mm3 (4.4-11.0)
[2022-06-30 12:51] LABS: Anion Gap 7 (5-15); BUN 23 mg/dL (7-18); BUN/Creat Ratio 20.9 RATIO (10-20); Calcium,Total 9.8 mg/dL (8.5-10.1); Chloride 107 mmol/L (98-107); EST Glomerular Filtration Rate 71 mL/min (>60); Est Glom Filt Rate - Afr Amer 85 mL/min (>60); Glucose 96 mg/dL (74-106); Potassium 3.8 mmol/L (3.5-5.1); Sodium Level 142 mmol/L (136-145)
== END | disposition home or self-care (01) ==
PROVIDERS: Referring Provider Otolaryngology; Visit Provider Otolaryngology
DX: Z01.810 Encounter for preprocedural cardiovascular examination (principal)
CPT/HCPCS: 36415; 80048; 85027; 93005